=== PATIENT | female | born 1930 | race African-American/Black ===

== ENCOUNTER 2016-12-11 12:43 | Inpatient (IN) | payer OTHER ==
--- NOTE | ~2016-12-11 | IDS ---
Interim Discharge Summary [facility] [address] [place] [address] NAME: VARUN CARTER : 30 STATUS : ADM IN PAT#: [id number] AGE: 85 ADM/REG DATE : 12/11/16 MR#: [id number] REPORT SERV DATE: 12/16/16 DICTATED BY: JOHNATHAN MUKHERJEE DATE: 12/15/16 REPORT STATUS : Draft TRANSCRIBED BY: PAUL DATE: 12/15/16 ADMISSION DATE: 12/11/2016 DISCHARGE DATE: ADDENDUM: Addendum to the previous interim discharge summary. I forget to mention abdominal imaging that she has received while being here at the hospital: 1. She had a CT scan of the abdomen which had shown cardiomegaly, bilateral benign stable adrenal masses, concern directed toward fullness of anterior cortex of the lower pole the right kidney, neoplasm not excluded. 2. Tiny calcification of the right kidney described above which has appearance of a small stone that is nonobstructing. 3. Extensive diverticulosis. She also had a renal sound ultrasound performed to follow up for the kidney findings in the CT scan. This would show 2.9 cm complex right renal lower pole cyst with potential mural nodule as opposed to thin septation, also found a simple bilateral renal cysts and 2.9 cm right adrenal nodule. Also a KUB was performed which would show a nonspecific gas pattern. LEANDRO/PAUL Johnathan Mukherjee APN / [id number] CC: Sergio Hadley M.D.
--- NOTE | ~2016-12-11 | IDS ---
Interim Discharge Summary [facility] [address] [place]. [address] NAME: VARUN CARTER : 30 STATUS : ADM IN PAT#: [id number] AGE: 85 ADM/REG DATE : 12/11/16 MR#: [id number] REPORT SERV DATE: 12/16/16 DICTATED BY: JOHNATHAN MUKHERJEE DATE: 12/15/16 REPORT STATUS : Draft TRANSCRIBED BY: MODToma DATE: 12/15/16 ADMISSION DATE: 12/11/2016 DISCHARGE DATE: REASON FOR ADMISSION: Abdominal pain. The patient was at [facility] for rehab after recent hospitalization. She had had an ankle fracture about a month ago and was there rehabbing. She presented to the emergency room with abdominal pain for one week. She had initially been diagnosed with a UTI, which was treated with Bactrim, but her symptoms continued; very poor bowel movements and her appetite was poor. DISCHARGE DIAGNOSES: 1. Abdominal pain and nausea secondary to gastrointestinal immotility, possible gastroparesis. 2. Status post hypovolemic acute kidney injury. 3. Type 2 diabetes. 4. Anxiety. 5. Urinary tract infection, Proteus. HOSPITAL COURSE: 1. Abdominal pain and nausea. The patient came to the emergency room constipated, was started on aggressive bowel regimen, had many bowel movements, but some of her abdominal discomfort and nausea persisted given her history of immobility, pain medications, and diabetes, gastroparesis and GI immotility was certainly a possibility, so we began Reglan on her and eventually started her also on Marinol to help with nausea and increased appetite and promote stomach emptying. This did, in fact, help both her abdominal discomfort and her appetite, and she is feeling much better. 2. Hypovolemic acute kidney injury. On admission, the patient's creatinine was 1.8, with IV fluids she was able to trend back down to 1.2. 3. UTI. As previously mentioned in reason for admission, she had been treated for UTI with Bactrim. Her urine was rechecked here at the hospital and she had seven white cells, small leukocyte esterase, and rare bacteria, but she would grow out Proteus mirabilis. Given her nonspecific abdominal symptoms, it was reasonable to treat her for this and she was started on Levaquin and has completed 3 days of therapy given that she was just treated for UTI with Bactrim and her symptoms are better. We have discontinued the Levaquin. DISCHARGE CONDITION: Stable. CURRENT MEDICATIONS: 1. Xanax 0.5 mg p.o. t.i.d. 2. Donepezil 10 mg p.o. at bedtime. 3. Marinol 5 mg p.o. b.i.d. 4. Enoxaparin 30 mg subcutaneously daily. 5. Ergocalciferol 50,000 units p.o. every 30 days. 6. Pepcid 20 mg p.o. daily. 7. Fluoxetine 40 mg p.o. daily. Interim Discharge Summary [address] [address] NAME: VARUN CARTER : 30 STATUS : ADM IN [facility]#: [id number] AGE: 85 ADM/REG DATE : 12/11/16 MR#: [id number] REPORT SERV DATE: 12/16/16 DICTATED BY: JOHNATHAN MUKHERJEE DATE: 12/15/16 REPORT STATUS : Draft TRANSCRIBED BY: PAUL DATE: 12/15/16 8. NovoLog 5 units subcutaneously a.c. 9. Sliding scale insulin. 10.Levemir 15 units subcutaneously b.i.d. 11.Lisinopril 40 mg p.o. daily. 12.Reglan 5 mg p.o. a.c. 13.Multivitamin one tablet daily. 14.Olanzapine 5 mg p.o. at bedtime. 15.MiraLAX one packet p.o. daily. 16.Simvastatin 40 mg p.o. at bedtime. CURRENT PLAN: The patient is medically stable for discharge. She still needs further rehab for her ankle. Her [facility] insurance approval for rehab is pending. Once her rehab bed is arranged at [facility], she can discharge. Orders have been left on chart and discharge medications already completed. The patient's care this week will be assumed by Dr. Larry Chu. LEANDRO/PAUL Johnathan Mukherjee APN / [id number] CC: Larry Chu M.D.
--- NOTE | ~2016-12-11 | DS ---
Discharge Summary [facility] [address] [place]. [address] NAME: VARUN CARTER : 30 STATUS : ADM IN PAT#: [id number] AGE: 85 ADM/REG DATE : 12/11/16 MR#: [id number] REPORT SERV DATE: 12/18/16 DICTATED BY: GLO CUELLAR DATE: 12/18/16 REPORT STATUS : Draft TRANSCRIBED BY: MODL DATE: 12/18/16 ADMISSION DATE: 12/11/2016 DISCHARGE DATE: 12/18/2016 FINAL HOSPITAL DIAGNOSES, CONSULTATIONS, AND PROCEDURES: As listed on previous H and P as well as interim summary, with the addition of MRI of the abdomen done on 12/17/2016 showing no suspicious renal lesion on MRI. Tiny group of cysts in the lower pole of the right kidney, one with septation. These can be followed sonographically. Stable bilateral benign adrenal lesions. CURRENT PHYSICAL FINDINGS AND HISTORY OF PRESENT ILLNESS: Please see dictated H and P and interim summary. I took over the patient's care on 12/16/2016 and will dictate from that point. The patient had been treated for UTI. She had been treated for abdominal symptoms, possible gastroparesis. She was awaiting recurrent placement. When I saw her on 12/16/2016, she was improving. On reviewing her previous imaging studies, there seemed to be some residual concern about a renal abnormality. On speaking to Radiology given the patient's chronic kidney disease, it was elected to proceed with an MRI with the above findings noted. Also had a long discussion with the family as far as repeat placement. They initially preferred to go to [facility]; however, she was denied. They were deciding between a different facility and [facility], but because of location and PT, preferred [facility]. Arrangements were made for replacement. She had already completed her course of antibiotics. They were not restarted. She was tolerating p.o. and having bowel movements. On 12/17/2016, she was reassessed and had no further significant complaints or problems. Today, on 12/18/2016, she was felt stable for discharge. DISPOSITION: She is discharged to rehab. MEDICATIONS: Xanax 0.5 t.i.d., a dose decrease from 1.5 t.i.d.; Aricept 10 at bedtime; vitamin D 50,000 monthly; Zantac 150 daily; Prozac 40 daily; Lantus 10 b.i.d.; Prinivil 40 a.m., previously the patient was taking 40 a.m. and 20 p.m., but she was kept on 40 daily; Zyprexa was increased from 2.5 to 5 daily; MiraLAX powder one per day; Zocor 40 daily; Tylenol p.r.n.; Mylanta p.r.n. Her previous Humalog sliding scale will be restarted, glucose tabs p.r.n. hypoglycemia. Hydrocodone 5/325 q.4 h. p.r.n., milk of mag p.r.n., Senokot two tabs as needed daily p.r.n., Dulcolax suppository p.r.n., Lozol 2.5 one per day, multivitamin one per day, vitamin C 500 twice a day. Her Norvasc 2.5 was not restarted. Enema p.r.n. and Maalox p.r.n. She will return for recurrent symptoms. ANGELINAF/PAUL Glo Cuellar M.D. / [id number] Discharge Summary [address] [address] NAME: VARUN CATRER : 30 STATUS : ADM IN PAT#: [id number] AGE: 85 ADM/REG DATE : 12/11/16 MR#: [id number] REPORT SERV DATE: 12/18/16 DICTATED BY: GLO CUELLAR DATE: 12/18/16 REPORT STATUS : Draft TRANSCRIBED BY: MODL DATE: 12/18/16 CC: Glo Cuellar M.D.
--- NOTE | ~2016-12-11 | HP ---
History And Physical [address] [place]. [address] NAME: VARUN CARTER : 30 STATUS : ADM IN [facility]#: [id number] AGE: 85 ADM/REG DATE : 12/11/16 MR#: [id number] REPORT SERV DATE: 12/12/16 DICTATED BY: NAKUL JETT DATE: 12/11/16 REPORT STATUS : Draft TRANSCRIBED BY: MODToma DATE: 12/11/16 DATE OF ADMISSION: 12/11/2016 REASON FOR ADMISSION: Abdominal pain due to obstipation. HISTORY OF PRESENT ILLNESS: Ms. Hurley is an 85-year-old female with dementia, hypertension, type 2 diabetes, status post consultation one month ago for ankle fracture, transferred to [facility] where she has not been able to walk thus far, presented to emergency department with abdominal pain for one week. She was diagnosed initially with UTI, treated with Bactrim, symptoms continued, bowel movements have been scant, hepatitis has been poor. She was drinking liquids, however, has normal urine output. The patient denies any nausea or vomiting. No headache. She does have some dizziness and some anxiety, but no chest pain. No shortness of breath, coughing, or wheezing. No swelling of her limbs. No weight change. REVIEW OF SYSTEMS: Negative per as mentioned above. MEDICATIONS: Include Xanax, Norvasc, vitamin C, Dulcolax, Aricept, vitamin D, Prozac, [place], Lozol, Lantus, lisinopril, Zyprexa, multivitamin, Zocor, and Bactrim as mentioned. ALLERGIES: ASPIRIN. FAMILY HISTORY: Father with hypertension. SOCIAL HISTORY: The patient has no tobacco, alcohol, or drug history. Here with her son lives at [facility]. PHYSICAL EXAMINATION: VITAL SIGNS: Blood pressure 119/55, pulse 66, respirations 19, afebrile, and O2 saturation 93%. GENERAL: Alert and oriented x3. No apparent distress. Somewhat anxious. HEENT: Pupils are equal and reactive to light. Extraocular movements are intact. There was pallor and dry mucous membranes. NECK: Revealed flat jugular veins. No carotid bruits, adenopathy, or goiter. CARDIAC: Regular rate and rhythm. No murmurs, gallops, or rubs. LUNGS: Clear to auscultation bilaterally. Good excursion. ABDOMEN: Obese with diffuse mild abdominal tenderness, particularly in the left lower quadrant suprapubic area, but really throughout, there was some tympany and distention also noted. EXTREMITIES: No cyanosis, clubbing, or edema. She had diminished pulses and diminished capillary refill. NEUROLOGIC: She had 4/5 strength in all four extremities. GENITOURINARY: She had scant clear urine in the Kimball catheter bag. PSYCHIATRIC: She was appropriate. LABORATORY EVALUATION: Sodium 139, potassium 5.9, chloride 103, bicarb 27, BUN 30, History And Physical [facility] [address] [facility] [place]. [address] NAME: VARUN CARTER : 30 STATUS : ADM IN [facility]#: [id number] AGE: 85 ADM/REG DATE : 12/11/16 MR#: [id number] REPORT SERV DATE: 12/12/16 DICTATED BY: NAKUL JETT DATE: 12/11/16 REPORT STATUS : Draft TRANSCRIBED BY: MODL DATE: 12/11/16 creatinine 1.8, glucose 242. White count 5000, H and H 12 and 36, platelets 220. Urinalysis showed [address] of the abdomen showed diverticulosis, stool retention with a severe fecal impaction, and a renal cyst was noted. ASSESSMENT AND PLAN: 1. Abdominal pain likely secondary to obstipation. 2. Urinary tract infection, does not appear to be significant. Renal cyst could theoretically be, this is difficult to appreciate whether this is complex. Does not appear to correlate positionally with her pain, and I feel that the abdominal distention from the stool retention is most likely the source of her pain. A bowel evacuation is recommended. We will discontinue the constipating medications. Hydrate her aggressively particularly in light of #2. 3. Acute kidney injury and hyperkalemia. This is due to hypovolemia and also that being status post Bactrim therapy. We will discontinue the diuretics, discontinue the trimethoprim, and sulfa. Give her IV fluids aggressively and hold her MORGAN inhibitor tonight. Carafate will also be given. 4. Diabetes, uncontrolled. Basal bolus regimen is recommended. We will follow expectantly. 5. Dementia with anxiety. Awfully high Xanax dose for senior citizen. The patient was discharged on 1 mg t.i.d., was increased to 1.5. I think we can back off this again, perhaps 0.5 t.i.d. but 0.5 p.r.n.. Increasing the Zyprexa instead may ameliorate the use of benzodiazepines to reduce her risk of falls which got her into the prison in the first place. 6. Hypertension. Blood pressure is currently satisfactory. Follow for now. 7. Abnormal CT the kidney. Ultrasound will be investigated. I believe this is going to be a benign lesion, will not require further biopsy, but we will determine this tomorrow. ADELINA/PAUL Nakul Jett M.D. / [id number] CC: Nakul Jett M.D.
[~2016-12-11 12:43] MED LIST: ARICEPT10 PO; HUMALOGMIX SC; LISINOPRIL40 MG PO; LOZOLTAB PO; NORCO1 TAB PO; PRIN20 PO; PROZAC40 MG PO; VITD PO; XANAX1 MG PO; ZANTAC 150 PO; ZOCOR40 PO; ZYP2 PO
[2016-12-11 12:47] LABS: BASOPHILS 0.6 %; BASOPHILS ABSOLUTE 0.03 10/3/uL (0.0-0.16); EOSINOPHILS 2.9 %; EOSINOPHILS ABSOLUTE 0.15 10/3/uL (0.0-0.53); HEMATOCRIT 36.5 % (36.0-48.0); HEMOGLOBIN 11.6 g/dL (12.0-16.0); IMMATURE GRANULOCYTES 0.2 %; IMMATURE GRANULOCYTES ABSOLUTE 0.01 10/3/uL (0.0-0.11); LYMPHOCYTES ABSOLUTE 2.21 10/3/uL (0.67-4.30); MEAN CORPUS HGB CONC 31.8 g/dL (32.0-36.0); MEAN CORPUSCULAR VOLUME 94.3 fL (80-100); MEAN PLATELET VOLUME 10.3 fL (9.2-13.0); MONOCYTES 6.5 %; MONOCYTES ABSOLUTE 0.34 10/3/uL (0.21-1.20); NEUTROPHILS 47.8 %; NEUTROPHILS ABSOLUTE 2.52 10/3/uL (2.02-8.40); PLATELET COUNT 220 10/3/uL (150-400); RBC DISTRIBUTION WIDTH 14.2 % (12.0-16.0); RED CELL COUNT 3.87 10/6/uL (4.0-5.6)
[2016-12-11 12:48] LABS: ER CBC TAT 0 Hrs 08 Mins; MANUAL DIFF NO %; WHITE BLOOD CELLS 5.3 10/3/uL (4.5-10.5)
[2016-12-11 12:50] LABS: ASCORBIC ACID (UR NOT ORDER) 40 (NEG); BILIRUBIN, URINE NEGATIVE (NEG); ER URINALYSIS TAT 0 Hrs 10 Mins; KETONE, URINE NEGATIVE (NEG); LEUKOCYTE ESTERASE(NOT OR SMALL (NEG); NITRITE (URINE) NEG (NEG); WBC (NOT ORDERED) (RFLEX) 7 (0-5)
[2016-12-11 13:04] LABS: A/G RATIO 0.8 (0.7-1.9); CALCIUM, SERUM 9.3 MG/DL (8.5-10.4); CHLORIDE, SERUM 103 MMOL/L (96-112); CO2 (CARBON DIOXIDE) 27 MMOL/L (24-34); CREATININE 1.82 MG/DL (0.55-1.02); GFR AFRICAN AMERICAN 29 ML/MIN (>=60); GFR NON AFRICAN AMERICAN 25 ML/MIN (>=60); GLOBULIN 3.8 G/DL (2.5-4.1); SGOT(AST) 13 U/L (5-40); SGPT(ALT) 30 U/L (5-65); SODIUM, SERUM 139 MMOL/L (135-148); TOTAL PROTEIN 6.8 G/DL (6.0-8.5)
[2016-12-11 13:08] LABS: ALKALINE PHOSPHATASE 117 U/L (45-117); BUN (BLOOD UREA NITROGEN) 38 MG/DL (6-23); GLUCOSE, SERUM 242 MG/DL (60-99); POTASSIUM, SERUM 5.9 MMOL/L (3.5-5.3); TOTAL BILIRUBIN 0.4 MG/DL (0-1.2)
[2016-12-11] MEDS ORDERED: NORV25 PO (15:05)
[2016-12-11] MEDS ORDERED: X5 PO (15:05)
[2016-12-11] MEDS ORDERED: ARICEPT10 PO (15:05)
[2016-12-11] MEDS ORDERED: LOZOLTAB PO (15:06)
[2016-12-11] MEDS ORDERED: PROZAC40 MG PO (15:06)
[2016-12-11] MEDS ORDERED: HUMALOG SC (15:06)
[2016-12-11] MEDS ORDERED: PRIN20 PO (15:07)
[2016-12-11] MEDS ORDERED: LANTUS SC (15:07)
[2016-12-11] MEDS ORDERED: LISINOPRIL40 MG PO (15:09)
[2016-12-11] MEDS ORDERED: ZYP2 PO (15:09)
[2016-12-11] MEDS ORDERED: ZANTAC150 MG PO (15:09)
[2016-12-11] MEDS ORDERED: ZOCOR40 PO (15:09)
[2016-12-11] MEDS ORDERED: CENTRUM PO (15:09)
[2016-12-11] MEDS ORDERED: BACDS PO (15:10)
[2016-12-11] MEDS ORDERED: VITC500 PO (15:12)
[2016-12-11] MEDS ORDERED: VITD PO (15:13)
[2016-12-11] MEDS ORDERED: FLEETS ENEMA PR (15:17)
[2016-12-11] MEDS ORDERED: BISR PO (15:17)
[2016-12-11] MEDS ORDERED: MAALOX PO (15:18)
[2016-12-11] MEDS ORDERED: NORCO1 TA1 PO (15:19)
[2016-12-11] MEDS ORDERED: SENTAB PO (15:19)
[2016-12-11] MEDS ORDERED: MOMUD PO (15:19)
[2016-12-12 06:06] LABS: CALCIUM, SERUM 9.1 MG/DL (8.5-10.4); CHLORIDE, SERUM 108 MMOL/L (96-112); CO2 (CARBON DIOXIDE) 25 MMOL/L (24-34); GFR AFRICAN AMERICAN 36 ML/MIN (>=60); GFR NON AFRICAN AMERICAN 31 ML/MIN (>=60); PHOSPHORUS, SERUM 3.2 MG/DL (2.5-4.5); POTASSIUM, SERUM 5.4 MMOL/L (3.5-5.3); SODIUM, SERUM 141 MMOL/L (135-148)
[2016-12-12 06:07] LABS: BUN (BLOOD UREA NITROGEN) 28 MG/DL (6-23); GLUCOSE, SERUM 165 MG/DL (60-99)
[2016-12-13 04:53] LABS: BUN (BLOOD UREA NITROGEN) 18 MG/DL (6-23); CALCIUM, SERUM 9.5 MG/DL (8.5-10.4); CHLORIDE, SERUM 106 MMOL/L (96-112); CO2 (CARBON DIOXIDE) 26 MMOL/L (24-34); CREATININE 1.16 MG/DL (0.55-1.02); GFR AFRICAN AMERICAN 50 ML/MIN (>=60); GFR NON AFRICAN AMERICAN 43 ML/MIN (>=60); GLUCOSE, SERUM 177 MG/DL (60-99); POTASSIUM, SERUM 4.5 MMOL/L (3.5-5.3); SODIUM, SERUM 142 MMOL/L (135-148)
[2016-12-14 06:59] LABS: BASOPHILS 0.5 %; BASOPHILS ABSOLUTE 0.03 10/3/uL (0.0-0.16); EOSINOPHILS 2.4 %; EOSINOPHILS ABSOLUTE 0.14 10/3/uL (0.0-0.53); HEMATOCRIT 34.2 % (36.0-48.0); HEMOGLOBIN 11.1 g/dL (12.0-16.0); IMMATURE GRANULOCYTES 0.2 %; IMMATURE GRANULOCYTES ABSOLUTE 0.01 10/3/uL (0.0-0.11); LYMPHOCYTES 43.2 %; LYMPHOCYTES ABSOLUTE 2.56 10/3/uL (0.67-4.30); MEAN CORPUS HGB CONC 32.5 g/dL (32.0-36.0); MEAN CORPUSCULAR HEMOGLOB 30.9 pg (26.0-34.0); MEAN CORPUSCULAR VOLUME 95.3 fL (80-100); MEAN PLATELET VOLUME 9.5 fL (9.2-13.0); MONOCYTES 8.6 %; MONOCYTES ABSOLUTE 0.51 10/3/uL (0.21-1.20); NEUTROPHILS 45.1 %; NEUTROPHILS ABSOLUTE 2.67 10/3/uL (2.02-8.40); PLATELET COUNT 192 10/3/uL (150-400); RBC DISTRIBUTION WIDTH 13.9 % (12.0-16.0); RED CELL COUNT 3.59 10/6/uL (4.0-5.6); WHITE BLOOD CELLS 5.9 10/3/uL (4.5-10.5)
[2016-12-14 07:00] LABS: MANUAL DIFF NO %
[2016-12-14 07:05] LABS: BUN (BLOOD UREA NITROGEN) 15 MG/DL (6-23); CALCIUM, SERUM 9.2 MG/DL (8.5-10.4); CHLORIDE, SERUM 109 MMOL/L (96-112); CO2 (CARBON DIOXIDE) 25 MMOL/L (24-34); GFR AFRICAN AMERICAN 48 ML/MIN (>=60); GFR NON AFRICAN AMERICAN 41 ML/MIN (>=60); GLUCOSE, SERUM 151 MG/DL (60-99); POTASSIUM, SERUM 4.3 MMOL/L (3.5-5.3); SODIUM, SERUM 143 MMOL/L (135-148)
[2016-12-16 13:26] LABS: BUN (BLOOD UREA NITROGEN) 19 MG/DL (6-23); CALCIUM, SERUM 9.1 MG/DL (8.5-10.4); CHLORIDE, SERUM 107 MMOL/L (96-112); CO2 (CARBON DIOXIDE) 26 MMOL/L (24-34); CREATININE 1.39 MG/DL (0.55-1.02); GFR AFRICAN AMERICAN 40 ML/MIN (>=60); GFR NON AFRICAN AMERICAN 34 ML/MIN (>=60); GLUCOSE, SERUM 178 MG/DL (60-99); POTASSIUM, SERUM 4.2 MMOL/L (3.5-5.3); SODIUM, SERUM 143 MMOL/L (135-148)
[2016-12-17 06:00] LABS: BUN (BLOOD UREA NITROGEN) 21 MG/DL (6-23); CALCIUM, SERUM 9.4 MG/DL (8.5-10.4); CHLORIDE, SERUM 107 MMOL/L (96-112); CO2 (CARBON DIOXIDE) 25 MMOL/L (24-34); CREATININE 1.38 MG/DL (0.55-1.02); GFR AFRICAN AMERICAN 40 ML/MIN (>=60); GFR NON AFRICAN AMERICAN 35 ML/MIN (>=60); GLUCOSE, SERUM 148 MG/DL (60-99); POTASSIUM, SERUM 4.2 MMOL/L (3.5-5.3); SODIUM, SERUM 143 MMOL/L (135-148)
== END 2016-12-18 16:24 | DRG 74 ==
LOC: ER 12:43 → 4SO 16:13
PROVIDERS: Emergency Medicine; Internal Medicine; Nurse Practitioner Gerontology
DX: E11.43 Type 2 diabetes mellitus with diabetic autonomic (poly)neuropathy (principal); N17.9 Acute kidney failure, unspecified; E11.65 Type 2 diabetes mellitus with hyperglycemia; F03.90 Unspecified dementia, unspecified severity, without behavioral disturbance, psychotic disturbance, mood disturbance, and anxiety; E87.5 Hyperkalemia; N39.0 Urinary tract infection, site not specified; K31.84 Gastroparesis; N28.1 Cyst of kidney, acquired; I10 Essential (primary) hypertension; K57.90 Diverticulosis of intestine, part unspecified, without perforation or abscess without bleeding; K56.41 Fecal impaction; E86.1 Hypovolemia; F41.9 Anxiety disorder, unspecified; B96.4 Proteus (mirabilis) (morganii) as the cause of diseases classified elsewhere; E27.9 Disorder of adrenal gland, unspecified; N20.0 Calculus of kidney; Z82.49 Family history of ischemic heart disease and other diseases of the circulatory system
CPT/HCPCS: 71010; 74000; 74176; 76775; 80048; 80053; 81001; 82962; 83690; 83735; 84100; 85025; 87077; 87086; 87186; 93005; 97110-GO; 97162-GP; 97166-GO; 97530-GP; 99285; A9270-GY; C8901; J1956

== ENCOUNTER 2017-01-03 15:01 | Emergency (ER) | payer OTHER ==
[2017-01-03 12:43] LABS: BASOPHILS 0.2 %; BASOPHILS ABSOLUTE 0.02 10/3/uL (0.0-0.16); EOSINOPHILS 0 %; HEMATOCRIT 34.8 % (36.0-48.0); HEMOGLOBIN 11.3 g/dL (12.0-16.0); IMMATURE GRANULOCYTES 0.1 %; IMMATURE GRANULOCYTES ABSOLUTE 0.01 10/3/uL (0.0-0.11); LYMPHOCYTES 10.9 %; LYMPHOCYTES ABSOLUTE 0.93 10/3/uL (0.67-4.30); MEAN CORPUS HGB CONC 32.5 g/dL (32.0-36.0); MEAN CORPUSCULAR HEMOGLOB 30.9 pg (26.0-34.0); MEAN CORPUSCULAR VOLUME 95.1 fL (80-100); MEAN PLATELET VOLUME 10.3 fL (9.2-13.0); MONOCYTES 9.8 %; MONOCYTES ABSOLUTE 0.84 10/3/uL (0.21-1.20); NEUTROPHILS ABSOLUTE 6.73 10/3/uL (2.02-8.40); PLATELET COUNT 203 10/3/uL (150-400); RBC DISTRIBUTION WIDTH 13.8 % (12.0-16.0); RED CELL COUNT 3.66 10/6/uL (4.0-5.6)
[2017-01-03 12:44] LABS: ER CBC TAT 0 Hrs 08 Mins; MANUAL DIFF NO %; WHITE BLOOD CELLS 8.5 10/3/uL (4.5-10.5)
[2017-01-03 12:50] LABS: INTERNATIONAL NORMAL RATI 1.2 UNITS (-); PROTIME (NOT ORD) 14.8 SEC (12.0-14.5)
[2017-01-03 12:57] LABS: A/G RATIO 0.8 (0.7-1.9); ALBUMIN 3.1 G/DL (3.5-5.0); ALKALINE PHOSPHATASE 96 U/L (45-117); BUN (BLOOD UREA NITROGEN) 11 MG/DL (6-23); CALCIUM, SERUM 8.9 MG/DL (8.5-10.4); CHLORIDE, SERUM 102 MMOL/L (96-112); CO2 (CARBON DIOXIDE) 27 MMOL/L (24-34); CREATININE 1.23 MG/DL (0.55-1.02); GFR AFRICAN AMERICAN 46 ML/MIN (>=60); GFR NON AFRICAN AMERICAN 40 ML/MIN (>=60); GLOBULIN 3.8 G/DL (2.5-4.1); GLUCOSE, SERUM 226 MG/DL (60-99); POTASSIUM, SERUM 4.2 MMOL/L (3.5-5.3); SGOT(AST) 24 U/L (5-40); SGPT(ALT) 21 U/L (5-65); SODIUM, SERUM 140 MMOL/L (135-148); TOTAL BILIRUBIN 0.3 MG/DL (0-1.2); TOTAL PROTEIN 6.9 G/DL (6.0-8.5)
[2017-01-03 13:03] LABS: INFLUENZA A SCREEN NEGATIVE (NEGATIVE); INFLUENZA B SCREEN NEGATIVE (NEGATIVE)
[2017-01-03 13:20] LABS: ASCORBIC ACID (UR NOT ORDER) 40 (NEG); BILIRUBIN, URINE NEGATIVE (NEG); ER URINALYSIS TAT 0 Hrs 15 Mins; KETONE, URINE NEGATIVE (NEG); LEUKOCYTE ESTERASE(NOT OR NEG (NEG); NITRITE (URINE) NEG (NEG); WBC (NOT ORDERED) (RFLEX) 3 (0-5)
[~2017-01-03 15:01] MED LIST changes: +BACDS PO; +BISR PO; +CENTRUM PO; +FLEETS ENEMA PR; +HUMALOG SC; +LANTUS SC; +MAALOX PO; +MOMUD PO; +NORCO1 TA1 PO; +NORV25 PO; +SENTAB PO; +VITC500 PO; +X5 PO; +ZANTAC150 MG PO
== END 2017-01-03 17:28 | disposition home or self-care (01) ==
LOC: ER 15:01
PROVIDERS: Emergency Medicine
DX: R50.9 Fever, unspecified (principal); J40 Bronchitis, not specified as acute or chronic; E11.9 Type 2 diabetes mellitus without complications; Z88.6 Allergy status to analgesic agent; Z79.4 Long term (current) use of insulin; Z79.899 Other long term (current) drug therapy
CPT/HCPCS: 71010; 80053; 81001; 83605; 83880; 85025; 85610; 87040; 87804; 93005; 94640; 96365; 96366; 99284; A9270-GY